=== PATIENT | male | born 1960 | race Two or more races ===

== ENCOUNTER 2024-09-23 09:21 | Inpatient (IN) | payer OTHER ==
[~2024-09-23] VITALS: Ht 152.4 cm; Wt 81.6 kg
[2024-09-23] MEDS ORDERED: ATORVASTATIN CA40 MG PO (09:47)
[2024-09-23] MEDS ORDERED: METFORMIN HCL1000 M2 PO (09:47)
[2024-09-23] MEDS ORDERED: 0.9 % SODIUM CHLORIDE 1,000 ML IV STA (10:05)
[2024-09-23] MEDS ORDERED: TETANUS & DIPHTHERIA TOX,ADULT 0.5 ML VIAL IM ONE (10:15)
[2024-09-23] MEDS ORDERED: PIPERACILLIN/TAZOBACTAM SODIUM 3.375 GM VIAL IV ONE (10:15)
[2024-09-23] MEDS ORDERED: GABAPENTIN 300 MG CAPSULE PO ONE (10:15)
[2024-09-23 10:33] LABS: HEMATOCRIT 40.1 % (39.0-48.0); HEMOGLOBIN 13.5 g/dL (13-16.00); MEAN CELL VOLUME 83.1 fL (80.0-100.00); MEAN CORPUSCULAR HEMOGLOBIN 27.9 pg (27.00-32.0); MEAN CORPUSCULAR HGB CONC 33.6 g/dl (32.0-36.0); PLATELET COUNT 195 K/uL (150-450); RED BLOOD COUNT 4.83 M/uL (4.00-6.00); RED CELL DISTRIBUTION WIDTH 13.5 % (11.5-14.5)
[2024-09-23 10:57] LABS: INR 1.05; PARTIAL THROMBOPLASTIN TIME 26.7 SECONDS (22.0-34.0); PROTHROMBIN TIME 11.4 SECONDS (9.0-11.5)
[2024-09-23 11:14] LABS: CALCIUM 9.7 mg/dL (8.5-10.1); CREATININE SERUM 0.93 mg/dL (0.70-1.30); GFR 82.33; POTASSIUM 3.7 mEq/L (3.5-5.1)
[2024-09-23] MEDS ORDERED: INSULIN LISPRO 1,000 UNIT/10 ML UNITS SUBCUTANEO PRN (11:30)
[2024-09-23] MEDS ORDERED: DEXTROSE 50 % IN WATER 0.5 G/ML DISP.SYRIN IV PRN (11:30)
[2024-09-23 11:31] LABS: C-REACTIVE PROTEIN 1.59 MG/DL (0.00-0.29)
[2024-09-23] MEDS ORDERED: FAMOTIDINE/PF 20 MG in 0.9 % SODIUM CHLORIDE 100 ML IV SCH (11:31)
[2024-09-23] MEDS ORDERED: CEFTRIAXONE SODIUM 2,000 MG in 0.9 % SODIUM CHLORIDE 100 ML IV SCH (11:31)
[2024-09-23] MEDS ORDERED: ACETAMINOPHEN 500 MG GEL..CAP PO PRN (11:45)
[2024-09-23] MEDS ORDERED: 0.9 % SODIUM CHLORIDE 1,000 ML IV SCH (11:45)
[2024-09-23] MEDS ORDERED: ATORVASTATIN CALCIUM 40 MG TABLET PO SCH (11:47)
[2024-09-23] MEDS ORDERED: GABAPENTIN 300 MG CAPSULE PO SCH (12:08)
[2024-09-23 16:21] LABS: CHOL HDL RATIO 4.1 (0-5.0)
[2024-09-23 16:27] VITALS: BP 170/90
[2024-09-23] MEDS ORDERED: ENALAPRILAT DIHYDRATE 1.25 MG/ML VIAL IV NR (16:30)
[2024-09-23] MEDS ORDERED: LOSARTAN POTASSIUM 50 MG TABLET PO SCH (17:00)
[2024-09-23 17:01] VITALS: BP 150/80
[2024-09-23 17:30] LABS: URINE APPEARANCE Clear; URINE BILIRRUBIN Negative (NEGATIVE); URINE COLOR Yellow; URINE KETONE Negative (NEGATIVE); URINE LEUKOCYTE Negative; URINE NITRATE Negative; URINE PROTEIN Negative (NEGATIVE); URINE UROBILINOGEN 0.2 E.U./dl
[2024-09-23 17:35] LABS: URINE RBC 4.7 uL (0.0-20.8)
[2024-09-23 17:36] LABS: URINE BACTERIA 3.7 uL (0.0-1933); URINE BLOOD TRACE; URINE GLUCOSE 100 MG/DL (NEGATIVE)
[2024-09-23 20:45] VITALS: BP 109/65
[2024-09-24 02:34] VITALS: BP 107/66; O2SAT 96
[2024-09-24] MEDS ORDERED: GABAPENTIN 300 MG CAPSULE PO SCH (09:00)
[2024-09-24 09:05] VITALS: BP 110/67; O2SAT 97
[2024-09-24 09:33] VITALS: BP 130/83; O2SAT 99
[2024-09-24 14:35] LABS: HEMATOCRIT 38.9 % (39.0-48.0); HEMOGLOBIN 12.9 g/dL (13-16.00); MEAN CELL VOLUME 83.5 fL (80.0-100.00); MEAN CORPUSCULAR HEMOGLOBIN 27.8 pg (27.00-32.0); MEAN CORPUSCULAR HGB CONC 33.3 g/dl (32.0-36.0); PLATELET COUNT 182 K/uL (150-450); RED BLOOD COUNT 4.65 M/uL (4.00-6.00); RED CELL DISTRIBUTION WIDTH 13.9 % (11.5-14.5)
[2024-09-24 15:03] LABS: CALCIUM 9.2 mg/dL (8.5-10.1); CREATININE SERUM 0.82 mg/dL (0.70-1.30); GFR 95.2; POTASSIUM 3.89 mEq/L (3.5-5.1)
[2024-09-24] MEDS ORDERED: INSULIN LISPRO 1,000 UNIT/10 ML UNITS SUBCUTANEO SCH (16:00)
[2024-09-24] MEDS ORDERED: CIPROFLOXACIN IN 5 % DEXTROSE 200 ML IV SCH (17:00)
[2024-09-24 17:21] VITALS: BP 123/84; O2SAT 94
[2024-09-24] MEDS ORDERED: PIPERACILLIN/TAZOBACTAM SODIUM 3.375 GM in 0.9 % SODIUM CHLORIDE 100 ML IV SCH (18:00)
[2024-09-24] MEDS ORDERED: INSULIN GLARGINE,HUM.REC.ANLOG 1,000 UNITS/10 ML UNITS SUBCUTANEO SCH (21:00)
[2024-09-25 02:24] VITALS: BP 126/75; O2SAT 96
[2024-09-25] MEDS ORDERED: ENOXAPARIN SODIUM 40 MG/0.4 ML SYRINGE SUBCUTANEO SCH (09:00)
[2024-09-25 09:38] VITALS: BP 105/68; O2SAT 94
[2024-09-25 16:43] VITALS: BP 138/81; O2SAT 96
[2024-09-26 02:39] VITALS: BP 109/57; O2SAT 98
[2024-09-26 09:01] VITALS: BP 114/74
[2024-09-26 17:36] VITALS: BP 142/94
[2024-09-27 00:29] VITALS: BP 127/76; O2SAT 99
[2024-09-27 06:14] LABS: HEMATOCRIT 38.2 % (39.0-48.0); HEMOGLOBIN 12.8 g/dL (13-16.00); MEAN CELL VOLUME 82.7 fL (80.0-100.00); MEAN CORPUSCULAR HEMOGLOBIN 27.8 pg (27.00-32.0); MEAN CORPUSCULAR HGB CONC 33.5 g/dl (32.0-36.0); PLATELET COUNT 205 K/uL (150-450); RED BLOOD COUNT 4.61 M/uL (4.00-6.00); RED CELL DISTRIBUTION WIDTH 13.3 % (11.5-14.5)
[2024-09-27 06:41] LABS: ALBUMIN 3.1 gm/dL (3.4-5.0); BILIRUBIN TOTAL 0.71 mg/dL (0.3-1.2); CALCIUM 9.5 mg/dL (8.5-10.1); CREATININE SERUM 0.76 mg/dL (0.70-1.30); GFR 103.92; GLOBULINA 3.3 G/DL (2.4-3.5); MAGNESIUM 1.9 mg/dL (1.8-2.4); PHOSPHOROUS 3.8 mg/dL (2.5-4.9); POTASSIUM 4.02 mEq/L (3.5-5.1); TOTAL PROTEIN 6.4 gm/dL (6.4-8.2)
[2024-09-27 06:43] LABS: C-REACTIVE PROTEIN 3.04 MG/DL (0.00-0.29)
[2024-09-27 06:47] LABS: ERYTHROCYTE SEDIMENTATION RATE 66 mm/hr
[2024-09-27 08:32] VITALS: BP 124/80
[2024-09-27] MEDS ORDERED: AMPICILLIN SODIUM/SULBACTAM NA 3,000 MG VIAL IV SCH (14:00)
[2024-09-27] MEDS ORDERED: FLUCONAZOLE IN NACL,ISO-OSM 200 MG/100 ML PIGGYBAG IV NR (16:00)
[2024-09-27] MEDS ORDERED: FAMOtidine 20 MG TABLET PO SCH (17:00)
[2024-09-27 18:49] VITALS: BP 147/85; O2SAT 98
[2024-09-28 00:22] VITALS: BP 126/75; O2SAT 98
[2024-09-28 02:37] LABS: CALCIUM 9.4 mg/dL (8.5-10.1); CREATININE SERUM 0.8 mg/dL (0.70-1.30); GFR 97.95; POTASSIUM 4.52 mEq/L (3.5-5.1)
[2024-09-28 09:12] VITALS: BP 144/85
[2024-09-28] MEDS ORDERED: FLUCONAZOLE IN NACL,ISO-OSM 50 ML IV SCH (12:00)
[2024-09-28] MEDS ORDERED: FLUCONAZOLE IN NACL,ISO-OSM 2 MG/ML ML IV SCH (17:00)
== END 2024-09-28 10:08 | disposition home or self-care (01) | DRG 638 ==
LOC: ER 09:23 → SEC-K 11:58 → MEDJ 11:58 → MEDI 13:36 → MEDJ 14:09
PROVIDERS: Emergency Medicine; General Practice; Internal Medicine Infectious Disease; ADMIT Student in an Organized Health Care Education/Training Program; ATTEND Student in an Organized Health Care Education/Training Program
PROC: B54DZZZ Ultrasonography of Bilateral Lower Extremity Veins (ICD-10-PCS; principal; 2024-09-23)
PROC: B44HZZZ Ultrasonography of Bilateral Lower Extremity Arteries (ICD-10-PCS; 2024-09-23)
PROC: BL31ZZZ Magnetic Resonance Imaging (MRI) of Lower Extremity Connective Tissue (ICD-10-PCS; 2024-09-27)
DX: E11.621 Type 2 diabetes mellitus with foot ulcer (principal); L03.116 Cellulitis of left lower limb; L97.429 Non-pressure chronic ulcer of left heel and midfoot with unspecified severity; L97.419 Non-pressure chronic ulcer of right heel and midfoot with unspecified severity; E11.51 Type 2 diabetes mellitus with diabetic peripheral angiopathy without gangrene; F17.200 Nicotine dependence, unspecified, uncomplicated; Z79.84 Long term (current) use of oral hypoglycemic drugs; B96.5 Pseudomonas (aeruginosa) (mallei) (pseudomallei) as the cause of diseases classified elsewhere; B95.2 Enterococcus as the cause of diseases classified elsewhere; B96.89 Other specified bacterial agents as the cause of diseases classified elsewhere
CPT/HCPCS: 73725

== ENCOUNTER 2025-09-12 07:50 | Inpatient (IN) | payer OTHER ==
[~2025-09-12] VITALS: Ht 177.8 cm; Wt 72.6 kg
[~2025-09-12 07:50] MED LIST: ATORVASTATIN CA40 MG PO; METFORMIN HCL1000 M2 PO
[2025-09-12] MEDS ORDERED: JENTADUETO 2.51 EAC2 (08:28)
[2025-09-12] MEDS ORDERED: ZESTRIL2.5 MG (08:28)
--- NOTE | 2025-09-12 08:29 | NUR ---
PACIENTE ALERTA Y ORIENTADO X 3 EN COMPANIA DE ESPOSA. PACIENTE REFIERE TENER JEREL DOLOR EN PIE JAIRON TRAS LACERACION PREVIA. SE OBAERVA DEDO #3 ENRROJECIDO Y LACERACION EN ROSEMARY DEL PIE JAIRON. SE LAVON SIGNOS VTALES Y EL MISMO DE UBICA EN SHERRI DE EMERGENCIAS PARA EVALUACION MEDICA
[2025-09-12] MEDS ORDERED: FAMOTIDINE/PF 20 MG in 0.9 % SODIUM CHLORIDE 8 ML IV PUSH ONE (09:45)
[2025-09-12] MEDS ORDERED: VANCOMYCIN HCL 1,000 MG VIAL IV ONE (09:45)
[2025-09-12] MEDS ORDERED: PIPERACILLIN/TAZOBACTAM SODIUM 3.375 GM in DEXTROSE 5 % IN WATER 100 ML IV ONE (09:45)
[2025-09-12] MEDS ORDERED: 0.9 % SODIUM CHLORIDE 1,000 ML IV SCH (09:45)
[2025-09-12] MEDS ORDERED: ACETAMINOPHEN 500 MG GEL..CAP PO ONE (09:45)
[2025-09-12 10:40] LABS: BASO % 0.5 % (0.1-1.2); EOS # 0.03 (0.04-0.54); EOS % 0.4 % (0.7-7.0); LYMPH # 0.96 (1.18-3.74); LYMPH % 11.6 % (19.3-53.1); MEAN PLATELET VOLUME 9.80 fl (9.4-12.4); MONO # 0.85 (0.24-0.82); MONO % 10.2 % (4.7-12.5); NEUT # 6.38 (1.56-6.13); NEUT % 76.8 % (34.0-71.1); RED CELL DISTRIBUTION WIDTH 12.5 % (11.6-14.4)
[2025-09-12 10:48] LABS: ERYTHROCYTE SEDIMENTATION RATE 51 mm/hr (0-20)
--- NOTE | 2025-09-12 10:48 | NUR ---
SE EDUCA PTE SOBRE TRATAMIENTO MEDICO Y TOM REFIERE ENTENDER Y ACEPTAR. SE PROCEDE A COLECTAR MUESTRAS DE LABORATORIO BAJO MEDIDAS ASEPTICAS Y JEANNETTE ORDEN MEDICA. SE CANALIZA PTE Y SE ADMINISTRAN MEDICAMENTOS JEANNETTE ORDEN MEDICA Y BAJO MEDIDAS ASEPTICAS. SE REALIZA EKG POR ORDENES DE DR CASTELLANOS Y SE PRESENTA AL MISMO. SE JAYLEN PTE EN JASMYNE CON NIVEL MAS BAJO DE LA MISMA Y BARANDAS ELEVADAS.
[2025-09-12 10:59] LABS: INR 1.08
[2025-09-12 11:05] LABS: ALT/SGPT 18.0 U/L (12-78); AST/SGOT 11.0 U/L (15-37); BILIRUBIN TOTAL 1.3 mg/dL (0.3-1.2); BUN CREA RATIO 21.0 (7.0-25.0); CREATININE SERUM 0.82 mg/dL (0.70-1.30); GFR 94.89; GLOBULINA 4.1 G/DL (2.4-3.5); GLUCOSE FASTING 155.0 mg/dL (65-100); OSMOLALITY SERUM 284.0 MOSM/KG (275-295)
[2025-09-12] MEDS ORDERED: INSULIN LISPRO 1,000 UNIT/10 ML UNITS SUBCUTANEO PRN (14:15)
[2025-09-12] MEDS ORDERED: DEXTROSE 50 % IN WATER 0.5 G/ML DISP.SYRIN IV PRN (14:15)
[2025-09-12] MEDS ORDERED: SODIUM CHLORIDE 0.45 % 1,000 ML IV SCH (14:15)
[2025-09-12 14:38] LABS: URINE APPEARANCE Clear; URINE BILIRRUBIN Negative (NEGATIVE); URINE BLOOD Small; URINE COLOR Dark Yellow; URINE GLUCOSE Negative (NEGATIVE); URINE KETONE Trace (NEGATIVE); URINE LEUKOCYTE Small; URINE NITRATE Negative; URINE PROTEIN 30 (NEGATIVE); URINE UROBILINOGEN 1.0 E.U./dl
[2025-09-12 14:42] LABS: URINE BACTERIA 229.1 uL (0.0-1933); URINE EPITHELIAL CELLS 10.3 uL (0.0-38.8); URINE RBC 17.1 uL (0.0-20.8); URINE WBC 29.9 uL (0.0-23.2)
[2025-09-12 14:44] LABS: URINE CAST 0.43 uL (0.0-1.40)
[2025-09-12] MEDS ORDERED: LACTOBACILLUS ACIDOPHILUS 1 CAP CAP PO ONE (15:19)
[2025-09-12 15:57] VITALS: BP 130/80
[2025-09-12] MEDS ORDERED: CEFEPIME HCL 2,000 MG in DEXTROSE 5 % IN WATER 100 ML IV SCH (17:00)
[2025-09-12] MEDS ORDERED: LACTOBACILLUS ACIDOPHILUS 1 CAP CAP PO SCH (17:00)
[2025-09-12] MEDS ORDERED: AMINO ACIDS 1 EACH TABLET PO SCH (17:00)
[2025-09-12] MEDS ORDERED: VANCOMYCIN HCL 1,000 MG VIAL ONE (20:21)
[2025-09-12] MEDS ORDERED: VANCOMYCIN HCL 1,000 MG VIAL IV SCH (21:00)
[2025-09-12] MEDS ORDERED: MORPHINE SULFATE 4 MG/ML CARTRIDGE IV PRN (22:00)
[2025-09-12 23:00] VITALS: BP 109/54; O2SAT 97
[2025-09-13] MEDS ORDERED: PANTOPRAZOLE SODIUM 40 MG TABLET.DR PO SCH (07:30)
[2025-09-13 08:09] VITALS: BP 92/53; O2SAT 96
[2025-09-13] MEDS ORDERED: ATORVASTATIN CALCIUM 40 MG TABLET PO SCH (09:00)
[2025-09-13] MEDS ORDERED: LISINOPRIL 2.5 MG TABLET PO SCH (09:00)
[2025-09-13] MEDS ORDERED: ENOXAPARIN SODIUM 40 MG/0.4 ML SYRINGE SUBCUTANEO SCH (09:00)
[2025-09-13 14:42] VITALS: BP 114/72; O2SAT 99
[2025-09-13] MEDS ORDERED: CEFAZOLIN SODIUM 2,000 MG in 0.9 % SODIUM CHLORIDE 100 ML IV SCH (17:00)
[2025-09-13 17:40] VITALS: BP 101/65
[2025-09-13] MEDS ORDERED: CIPROFLOXACIN IN 5 % DEXTROSE 400 MG/200 ML PIGGYBAG IV SCH (21:00)
[2025-09-14 02:46] VITALS: BP 102/66; O2SAT 99
[2025-09-14 06:45] LABS: BASO % 0.7 % (0.1-1.2); EOS # 0.23 (0.04-0.54); EOS % 3.3 % (0.7-7.0); LYMPH # 2.10 (1.18-3.74); LYMPH % 30.5 % (19.3-53.1); MEAN PLATELET VOLUME 10.50 fl (9.4-12.4); MONO # 1.02 (0.24-0.82); NEUT # 3.44 (1.56-6.13); NEUT % 50.1 % (34.0-71.1); RED CELL DISTRIBUTION WIDTH 12.7 % (11.6-14.4)
[2025-09-14 07:11] LABS: ALT/SGPT 19.0 U/L (12-78); AST/SGOT 17.0 U/L (15-37); BILIRUBIN TOTAL 0.72 mg/dL (0.3-1.2); BUN CREA RATIO 13.0 (7.0-25.0); CREATININE SERUM 0.64 mg/dL (0.70-1.30); GFR 126.31; GLOBULINA 3.3 G/DL (2.4-3.5); GLUCOSE FASTING 104.0 mg/dL (65-100); OSMOLALITY SERUM 278.0 MOSM/KG (275-295)
[2025-09-14 07:34] LABS: MONO % 14.8 % (4.7-12.5)
[2025-09-14 07:35] LABS: ERYTHROCYTE SEDIMENTATION RATE 63 mm/hr (0-20)
[2025-09-14 10:00] VITALS: BP 105/69; O2SAT 97
[2025-09-14] MEDS ORDERED: MAGNESIUM SULFATE IN WATER 4 GM/100 ML PIGGYBACK IV NR (10:30)
[2025-09-14 18:36] VITALS: BP 117/68; O2SAT 99
[2025-09-14 18:39] VITALS: BP 107/68; O2SAT 98
[2025-09-15 03:31] VITALS: BP 115/72; O2SAT 97
[2025-09-15 09:19] VITALS: BP 108/70; O2SAT 99
[2025-09-15 18:22] VITALS: BP 136/84; O2SAT 97
[2025-09-16 03:56] VITALS: BP 95/59; O2SAT 97
[2025-09-16 10:02] VITALS: BP 108/67; O2SAT 96
[2025-09-16 18:06] VITALS: BP 123/74
[2025-09-17 02:25] VITALS: BP 101/54; O2SAT 97
[2025-09-17 10:19] VITALS: BP 113/72; O2SAT 97
[2025-09-17] MEDS ORDERED: KETOROLAC TROMETHAMINE 60 MG VIAL IM NR (17:00)
[2025-09-17 18:11] VITALS: BP 120/75
[2025-09-18 02:30] VITALS: BP 114/66
[2025-09-18 06:12] LABS: BASO % 0.6 % (0.1-1.2); EOS # 0.18 (0.04-0.54); EOS % 2.9 % (0.7-7.0); LYMPH # 2.15 (1.18-3.74); LYMPH % 34.2 % (19.3-53.1); MEAN PLATELET VOLUME 11.10 fl (9.4-12.4); MONO # 0.66 (0.24-0.82); MONO % 10.5 % (4.7-12.5); NEUT # 3.19 (1.56-6.13); NEUT % 50.8 % (34.0-71.1); RED CELL DISTRIBUTION WIDTH 12.7 % (11.6-14.4)
[2025-09-18 06:53] LABS: ALT/SGPT 61.0 U/L (12-78); AST/SGOT 77.0 U/L (15-37); BILIRUBIN TOTAL 0.47 mg/dL (0.3-1.2); BUN CREA RATIO 13.0 (7.0-25.0); CREATININE SERUM 0.67 mg/dL (0.70-1.30); GFR 119.8; GLOBULINA 3.5 G/DL (2.4-3.5); GLUCOSE FASTING 107.0 mg/dL (65-100); OSMOLALITY SERUM 280.0 MOSM/KG (275-295)
[2025-09-18 08:35] VITALS: BP 117/82; O2SAT 99
[2025-09-18 08:51] LABS: URINE APPEARANCE Clear; URINE BILIRRUBIN Negative (NEGATIVE); URINE BLOOD Negative; URINE COLOR Yellow; URINE GLUCOSE Negative (NEGATIVE); URINE KETONE Negative (NEGATIVE); URINE LEUKOCYTE Negative; URINE NITRATE Negative; URINE PROTEIN Trace (NEGATIVE); URINE UROBILINOGEN 1.0 E.U./dl
[2025-09-18 08:52] LABS: URINE EPITHELIAL CELLS 1.9 uL (0.0-38.8); URINE RBC 6.5 uL (0.0-20.8); URINE WBC 2.1 uL (0.0-23.2)
[2025-09-18 08:57] LABS: URINE BACTERIA 3.5 uL (0.0-1933); URINE CAST 0.00 uL (0.0-1.40)
[2025-09-18] MEDS ORDERED: KETOROLAC TROMETHAMINE 60 MG VIAL IM NR (11:00)
[2025-09-18 18:04] VITALS: BP 136/73
[2025-09-19 02:26] VITALS: BP 112/70; O2SAT 97
[2025-09-19 09:13] VITALS: BP 125/82; O2SAT 96
[2025-09-19 17:45] VITALS: BP 130/74
[2025-09-20 02:43] VITALS: BP 125/76; O2SAT 98
[2025-09-20 08:58] VITALS: BP 135/84; O2SAT 98
[2025-09-20] MEDS ORDERED: ACETAMINOPHEN 500 MG GEL..CAP PO STA (11:40)
[2025-09-20] MEDS ORDERED: BUPIVACAINE HCL/MPF 0.5% 30ML VIAL ONE (12:06)
[2025-09-20] MEDS ORDERED: LIDOCAINE HCL 1%/EPINEPHRINE 20ML VIAL IJ ONE (12:07)
[2025-09-20] MEDS ORDERED: CEFAZOLIN SODIUM 1,000 MG VIAL ONE ×2 (13:47→18:09)
[2025-09-20] MEDS ORDERED: ISOPROPYL ALCOHOL 30 ML OUNCE TOP ONE (13:49)
[2025-09-20] MEDS ORDERED: POVIDONE-IODINE 118 ML BOTT TOP ONE (14:18)
[2025-09-21 01:47] VITALS: BP 119/74; O2SAT 99
[2025-09-21 08:44] VITALS: BP 117/73; O2SAT 96
[2025-09-21] MEDS ORDERED: SODIUM CL 0.9% 100 ML IV.SOLN IV ONE (15:47)
[2025-09-21 20:50] VITALS: BP 126/76; O2SAT 96
[2025-09-22 06:29] LABS: BASO % 0.9 % (0.1-1.2); EOS # 0.21 (0.04-0.54); EOS % 2.7 % (0.7-7.0); LYMPH # 2.53 (1.18-3.74); LYMPH % 32.2 % (19.3-53.1); MEAN PLATELET VOLUME 11.20 fl (9.4-12.4); MONO # 0.80 (0.24-0.82); MONO % 10.2 % (4.7-12.5); NEUT # 4.20 (1.56-6.13); NEUT % 53.4 % (34.0-71.1); RED CELL DISTRIBUTION WIDTH 13.0 % (11.6-14.4)
[2025-09-22 07:00] LABS: BUN CREA RATIO 10.0 (7.0-25.0); CREATININE SERUM 0.62 mg/dL (0.70-1.30); GFR 131.02; GLUCOSE FASTING 106.0 mg/dL (65-100); OSMOLALITY SERUM 281.0 MOSM/KG (275-295)
[2025-09-22 09:21] VITALS: BP 149/80; O2SAT 98
[2025-09-22 17:48] VITALS: BP 134/89
[2025-09-23 03:26] VITALS: BP 116/70; O2SAT 97
[2025-09-23 08:37] VITALS: BP 135/76; O2SAT 96
[2025-09-26 02:08] LABS: HEPATITIS A ANTIBODY IGG Positive (Negative); HEPATITIS BE ANTIGEN Negative (Negative)
== END 2025-09-23 13:05 | disposition home or self-care (01) | DRG 580 ==
LOC: ER 07:50 → SEC-K 14:32 → MEDJ 14:32
PROVIDERS: General Practice; Internal Medicine; Internal Medicine Infectious Disease; Specialist; Student in an Organized Health Care Education/Training Program; ADMIT Internal Medicine; ATTEND Internal Medicine
PROC: B54CZZZ Ultrasonography of Left Lower Extremity Veins (ICD-10-PCS; 2025-09-12)
PROC: 0H9LXZZ Drainage of Left Lower Leg Skin, External Approach (ICD-10-PCS; 2025-09-13)
PROC: B43GZZZ Magnetic Resonance Imaging (MRI) of Left Lower Extremity Arteries (ICD-10-PCS; 2025-09-13)
PROC: 0Y6U0Z0 Detachment at Left 3rd Toe, Complete, Open Approach (ICD-10-PCS; principal; 2025-09-20 13:00)
DX: L97.529 Non-pressure chronic ulcer of other part of left foot with unspecified severity (principal); M86.9 Osteomyelitis, unspecified; E11.9 Type 2 diabetes mellitus without complications; Z79.4 Long term (current) use of insulin; E78.5 Hyperlipidemia, unspecified; F17.200 Nicotine dependence, unspecified, uncomplicated; F19.90 Other psychoactive substance use, unspecified, uncomplicated

== ENCOUNTER 2025-10-10 08:24 | Emergency (ER) | payer OTHER ==
[~2025-10-10] VITALS: Ht 180.3 cm; Wt 77.1 kg
[~2025-10-10 08:24] MED LIST changes: +JENTADUETO 2.51 EAC2; +ZESTRIL2.5 MG
== END 2025-10-10 09:55 | disposition home or self-care (01) ==
LOC: ER 08:24
DX: Z47.81 Encounter for orthopedic aftercare following surgical amputation (principal); Z89.422 Acquired absence of other left toe(s)